=== PATIENT | male | born 1970 ===

== ENCOUNTER 2019-08-16 13:37 | Outpatient (CLI) | payer OTHER | END 2019-08-16 13:41 | disposition home or self-care (01) | LOC: TOM 13:37 | DX: M48.062 Spinal stenosis, lumbar region with neurogenic claudication (principal); M54.16 Radiculopathy, lumbar region ==

== ENCOUNTER 2019-08-16 14:44 | Outpatient (CLI) | payer OTHER | END 2019-08-16 15:08 | disposition home or self-care (01) | LOC: NUCLEAR 14:44 | DX: M81.0 Age-related osteoporosis without current pathological fracture (principal); M48.062 Spinal stenosis, lumbar region with neurogenic claudication; M54.16 Radiculopathy, lumbar region ==

== ENCOUNTER 2019-12-22 08:41 | Outpatient (CLI) | payer OTHER | END 2019-12-22 08:50 | disposition home or self-care (01) | LOC: SONOGRAMA 08:41 | DX: R16.0 Hepatomegaly, not elsewhere classified (principal) ==

== ENCOUNTER 2020-07-18 09:58 | Outpatient (CLI) | payer OTHER | END 2020-07-18 10:10 | disposition home or self-care (01) | LOC: SONOGRAMA 09:58 | DX: K76.0 Fatty (change of) liver, not elsewhere classified (principal) ==

== ENCOUNTER 2021-11-19 12:01 | Outpatient (CLI) | payer OTHER | END 2021-11-19 12:11 | disposition home or self-care (01) | LOC: RAD 12:01 | PROVIDERS: ATTEND Pathology Anatomic Pathology & Clinical Pathology | DX: J45.998 Other asthma (principal); R68.89 Other general symptoms and signs; J20.8 Acute bronchitis due to other specified organisms ==

== ENCOUNTER 2022-01-04 08:17 | Outpatient (CLI) | payer OTHER | END 2022-01-04 08:54 | disposition home or self-care (01) | LOC: RAD 08:17 | PROVIDERS: ATTEND Pathology Anatomic Pathology & Clinical Pathology | DX: M25.561 Pain in right knee (principal) ==